=== PATIENT | male | born 1950 | race Caucasian/White ===

== ENCOUNTER → 2016-08-02 | Outpatient (CLI) | payer MEDICARE, BC ==
[~2016-08-02] MED LIST: ALLEGRA60 MG PO; ASPIRIN LO-DOSE81 MG PO; BRILINTA90 MG PO; IRON65 PO; LIPITOR80 MG PO; NITROSTAT0.4 MG SL; PRILOSEC20 MG PO; THERAGRAN-M1 TAB PO; VITAMIN D-32000 UNI1 PO
[2016-08-02 10:59] LABS: HEMATOCRIT 44.9 % (37.0-53.0); MCH 29.7 pg (27.0-34.0); MCHC 33.4 gm/dL (32.0-36.5); MCV 88.9 fl (83.0-98.0); MPV 9.5 fl (9.4-12.4); RBC 5.05 M/uL (3.50-5.50); RDW-CV 12.9 % (11.9-14.6); WBC 6.8 K/uL (4.0-11.0)
[2016-08-02 11:16] LABS: ALBUMIN 3.8 gm/dL (3.5-5.0); ALK PHOS 82 IU/L (33-138); ALT 28 IU/L (12-78); ANION GAP 9.1 (10.0-19.0); AST 25 IU/L (10-40); BLOOD UREA NITROGEN 18 mg/dL (6-24); CALCIUM 8.3 mg/dL (8.5-10.5); CHLORIDE 108 mMol/L (96-110); CO2 29 mMol/L (22-32); CPK 170 IU/L (35-332); CREATININE 1.1 mg/dL (0.6-1.3); ESTIMATED GFR (MDRD EQUATION) > 60; POTASSIUM 4.1 mMol/L (3.7-5.1); SODIUM 142 mMol/L (135-145); TOTAL BILIRUBIN 0.7 mg/dL (0.0-1.5); TOTAL PROTEIN 7.1 g/dL (6.0-8.4)
== END | disposition disaster alternative care site (69) ==
LOC: LGSMG 10:53
PROVIDERS: Internal Medicine
DX: R07.9 Chest pain, unspecified (principal); E11.65 Type 2 diabetes mellitus with hyperglycemia; E78.5 Hyperlipidemia, unspecified; E66.9 Obesity, unspecified

== ENCOUNTER → 2016-08-19 | Outpatient (CLI) | payer MEDICARE, BC | LOC: LGSOS 09:26 | DX: E78.00 Pure hypercholesterolemia, unspecified (principal) ==